=== PATIENT | male | born 1990 | race Caucasian/White ===

== ENCOUNTER 2018-06-24 01:56 | Emergency (ER) | payer OTHER ==
[~2018-06-24] VITALS: Ht 182.9 cm; Wt 127.0 kg
--- NOTE | 2018-06-24 02:15 | NUR ---
Patient is an [employer] who was attempting to handcuff a suspect when he injuried left hand. Left hand with swelling and painful. Nerve and checks with normal limits (less than 3 second)
[2018-06-24 03:17] VITALS: BP 138/88
--- NOTE | 2018-06-24 03:17 | NUR ---
Patient discharged to home in stable conditon. Written and verbal after care instructions given. Patient verbalizes understanding of instructions. Walked out of ER with no distress noted
== END 2018-06-24 03:18 | disposition home or self-care (01) ==
LOC: ER 02:03
DX: S60.042A Contusion of left ring finger without damage to nail, initial encounter (principal); W23.0XXA Caught, crushed, jammed, or pinched between moving objects, initial encounter; Y93.89 Activity, other specified; Y92.89 Other specified places as the place of occurrence of the external cause; Y99.8 Other external cause status
CPT/HCPCS: 73130; A4663